=== PATIENT | female | born 1940 | race Caucasian/White ===

== ENCOUNTER → 2016-12-26 | Outpatient (CLI) | payer MEDICARE ==
--- NOTE | 2016-12-26 08:34 | BD ---
EXAMINATION TYPE: MG DEXA axial skeleton. DATE OF EXAM: 12/26/2016 7:27 AM COMPARISON: 2013 CLINICAL HISTORY: 76-year-old female, screening for osteoporosis, post menopausal Height: 5'6 Weight: 212 FRAX RISK QUESTIONS: Alcohol (3 or more units per day): no Family History (Parent hip fracture): no Glucocorticoids (More than 3mos): no (Ex: prednisone, prednisolone, methylprednisolone, dexamethasone, and hydrocortisone). History of Fracture in Adulthood: no Secondary Osteoporosis: 1. Type 1 Diabetes: no 2. Hyperthyroidism: no 3. Menopause before 45: no 4. Malnutrition: no 5. Chronic liver disease: no Rheumatoid Arthritis: no Current Tobacco Use: no RISK FACTORS HISTORY OF: Postmenopausal woman: MEDICATIONS: Additional Medications: blood pressure Additional History: EXAM MEASUREMENTS: Bone mineral densitometry was performed using the [employer] System. Bone mineral density as measured about the Lumbar spine is: ----- L1-L4(G/cm2): 1.579 T Score Values are as follows: ----- L2: 5.2 ----- L3: 2.0 ----- L4: 1.9 ----- L1-L4:3.3 Bone mineral density has: Decreased -2.7% since study of: 12/02/2013 Bone mineral density about the R hip (g/cm2): 0.979 Bone mineral density about the L hip (g/cm2): 0.871 T Score values are as follows: -----R Neck: 0.4 -----L Neck: -1.2 -----R Intertrochanter: 0.6 -----L Intertrochanter: 0.4 Bone mineral density has: Increased 0.4% since study of: 12/02/2013 IMPRESSION: Osteopenia as indicated by T score values within the left hip. There is slightly increased risk of fracture and the patient may be considered for treatment. Re-Screen 2-5 years. NOTE: T-SCORE=SD OF THE YOUNG ADULT MEAN.
--- NOTE | 2016-12-27 10:50 | MM ---
Reason for exam: screening (asymptomatic). Last mammogram was performed 1 year and 11 months ago. History: Patient is postmenopausal and had first child at age 32. Family history of breast cancer in mother. 2 excisional biopsies of the right breast. Physical Findings: A clinical breast exam by your physician is recommended on an annual basis and results should be correlated with mammographic findings. MG 3D Screening Mammo W/Cad Bilateral CC and MLO view(s) were taken. Prior study comparison: January 19, 2015, bilateral MG screening mammo w CAD. December 02, 2013, bilateral digital screening mammo w/CAD. October 10, 2008, bilateral digital screening mammogram. There are scattered fibroglandular densities. Finding #1: Stable architectural distortion in the upper quadrant, anterior position of the right breast, consistent with known excisional biopsy. Finding #2: There are typically benign round calcifications in the right breast. Asymmetric breast tissue in the right breast, anterior position, stable. There is no discrete abnormality. ASSESSMENT: Benign, BI-RAD 2 RECOMMENDATION: Routine screening mammogram of both breasts in 1 year.
== END | disposition home or self-care (01) ==
LOC: RADMAMWWP 06:46
PROVIDERS: ATTEND Family Medicine
DX: Z12.31 Encounter for screening mammogram for malignant neoplasm of breast (principal); M85.852 Other specified disorders of bone density and structure, left thigh; Z78.0 Asymptomatic menopausal state
CPT/HCPCS: 77080; 77063; G0202

== ENCOUNTER → 2023-04-06 | Outpatient (CLI) | payer MEDICARE ==
[2023-04-06 10:01] LABS: ALT 23 U/L (4-34); AST 33 U/L (14-36)
[2023-04-06 16:30] LABS: Chol/HDL Ratio 1.82 Ratio; LDL Cholesterol,Calculated 68.2 mg/dL (0.0-131.0); VLDL Calculation 7.38 mg/dL (5.00-40.00)
== END | disposition home or self-care (01) ==
LOC: LABWHC1 07:11
PROVIDERS: ATTEND Internal Medicine Interventional Cardiology
DX: E78.2 Mixed hyperlipidemia (principal)
CPT/HCPCS: 36415; 80061; 84450; 84460

== ENCOUNTER → 2025-03-07 | Outpatient (CLI) | payer MEDICARE ==
[2025-03-07 10:24] LABS: ALT 24 U/L (8-44); AST 26 U/L (13-35); Chol/HDL Ratio 1.68 Ratio; LDL Cholesterol,Calculated 59.5 mg/dL (0.0-131.0); VLDL Calculation 6.72 mg/dL (5.00-40.00)
== END | disposition home or self-care (01) ==
LOC: LABWHC1 07:38
PROVIDERS: ATTEND Nurse Practitioner Adult Health
DX: E78.2 Mixed hyperlipidemia (principal)
CPT/HCPCS: 36415; 80061; 84450; 84460